=== PATIENT | female | born 1995 | race African-American/Black ===

== ENCOUNTER 2021-02-16 00:32 | Emergency (ER) | payer OTHER | END 2021-02-16 04:22 | disposition left against medical advice (07) | LOC: ER 00:32 | DX: O46.90 Antepartum hemorrhage, unspecified, unspecified trimester (principal); Z53.21 Procedure and treatment not carried out due to patient leaving prior to being seen by health care provider; Z3A.00 Weeks of gestation of pregnancy not specified ==